=== PATIENT | female | born 1980 | race Caucasian/White ===

== ENCOUNTER 2016-04-05 09:00 | Inpatient (IN) | payer MEDICAID ==
[~2016-04-05] VITALS: Ht 157.5 cm; Wt 89.5 kg
[2016-04-05 09:56] VITALS: Ht 157.5 cm; Wt 89.5 kg
[2016-04-05 09:57] VITALS: BP 121/74; PULSE 88; RESP 18
[2016-04-05] MEDS ORDERED: CARBOPROST 250 MCG INJ IM PRN (10:00)
[2016-04-05] MEDS ORDERED: LIDOCAINE 1% (MPF) 30 ML INJ INJ PRN (10:00)
[2016-04-05] MEDS ORDERED: BUTORPHANOL 2 MG INJ IV PRN (10:00)
[2016-04-05] MEDS ORDERED: OXYTOCIN 30 UNITS/LR 500 ML IV PRN (10:00)
[2016-04-05] MEDS ORDERED: LACTATED RINGER'S 1,000 ML IV PRN (10:00)
[2016-04-05] MEDS ORDERED: IBUPROFEN 600 MG TAB PO PRN (10:00)
[2016-04-05] MEDS ORDERED: MISOPROSTOL 200 MCG TAB PR PRN (10:00)
[2016-04-05] MEDS ORDERED: METHYLERGONOVINE 0.2 MG INJ IM PRN (10:00)
[2016-04-05] MEDS ORDERED: OXYTOCIN 30 UNITS/LR 500 ML IV SCH ×2 (10:00)
[2016-04-05] MEDS: LACTATED RINGER'S 1,000 ML IV SCH ×3 (10:56→23:37)
[2016-04-05 11:24] LABS: BASOPHILS % 0.1 % (0.0-2.0); EOSINOPHILS # 0.1 10^3/ul (0.0-0.5); EOSINOPHILS % 1.1 % (0.0-7.0); HEMATOCRIT 33.9 % (37.0-47.0); HEMOGLOBIN 11.6 g/dl (12.0-16.0); LYMPHOCYTES # 1.2 10^3/ul (0.8-2.9); LYMPHOCYTES % 17.3 % (15.0-51.0); MEAN CORPUSCULAR HEMOGLOBIN 30.5 pg (29.0-33.0); MEAN CORPUSCULAR HGB CONC 34.3 g/dl (32.0-37.0); MEAN PLATELET VOLUME 11.1 fl (7.4-10.4); MONOCYTE # 0.4 10^3/ul (0.3-0.9); NEUTROPHIL # 5.3 10^3/ul (1.6-7.5); NEUTROPHILS % 75.5 % (39.0-77.0); PLATELET COUNT 162 10^3/UL (140-440); RED BLOOD COUNT 3.81 10^6/ul (4.20-5.40); RED CELL DISTRIBUTION WIDTH 14.5 % (11.5-14.5)
[2016-04-05 11:39] LABS: CONDITION 1; LH ANALYZER COMMENTS 1
[2016-04-05 11:40] LABS: INR 0.91; PROTIME 12.3 Sec (12.2-14.2)
[2016-04-05 11:41] LABS: PARTIAL THROMBOPLASTIN TIME 25.6 Sec (25.0-35.0)
[2016-04-05] MEDS ORDERED: DINOPROSTONE 10 MG VAG SUPP VAG ONE (12:30)
--- NOTE | 2016-04-05 18:44 | HP ---
Date/Time of Note Date/Time of Note DATE: 04/05/16 TIME: 18:39 OB - History Hx of Present Free Text/Dictation admitted for induction of the labor at term Last Menstrual Period: Jul 04, 2015 Estimated Due Date: Apr 04, 2016 : 3 Para: 1 Spontaneous : 1 Care: Good Care Ultrasounds: Normal mid trimester US Obstetrical Complications: None Medical Complications: None Past Family/Social History * Past Medical, Surgical, Family and Obstetric Histories reviewed from chart. Blood Type: B- Rubella: immune RPR/VDRL: Negative GBS Status: Negative HBsAG: Negative OB Admission Exam Vital Signs Vital Signs Vital Signs Date Time Temp Pulse Resp B/P Pulse Ox O2 Delivery O2 Flow Rate FiO2 04/05/16 09:57 98.4 88 18 121/74 Room Air Physical Exam HEENT: WNL Heart: Rhythm Normal Lungs: Clear, Equal Abdomen: WNL Extremities: Normal Reflexes: Normal Cervical Dilatation: Fingertip Effacement: 0% Station: -3 Membranes: Intact Heart Rate: 120's Accelerations: Accelerations Present Decelerations: No Decelerations Varibility: Moderate Contractions on Admission: None Last 72 hours Lab Results CBC & BMP 04/05/16 11:00 OB Assessment/Plan Other Assessment: term gestation for induction of the labor Induction Method: per Misoprostol Protocol MEGHANA HOOPER MD Apr 05, 2016 18:44
[2016-04-05] MEDS ORDERED: FENTAnyl 2MCG/ML-ROPIV 0.2% 100 ML ONE (23:55)
[2016-04-06] MEDS ORDERED: DIPHENHYDRAMINE 50 MG INJ IV PRN
[2016-04-06] MEDS ORDERED: FENTAnyl 2MCG/ML-ROPIV 0.2% 100 ML BAG EPI SCH
[2016-04-06] MEDS ORDERED: NALOXONE (0.4 MG/ML) INJ IV PRN
[2016-04-06] MEDS ORDERED: ONDANSETRON 4 MG INJ IV PRN
[2016-04-06] MEDS: LACTATED RINGER'S 1,000 ML IV SCH ×2 (01:59→07:59)
[2016-04-06] MEDS ORDERED: OXYTOCIN 30 UNITS/LR 500 ML IV SCH (05:30)
[2016-04-06] MEDS ORDERED: PRENAT PO (07:31)
[2016-04-06] MEDS ORDERED: MINERAL OIL LIGHT 10 ML VIAL TOP ONE (11:00)
--- NOTE | 2016-04-06 14:59 | LDN ---
Date/Time of Note Date/Time of Note DATE: 04/06/16 TIME: 14:57 Delivery Summary of a viable over intact perineum Placenta Delivered: Spontaneously, Intact & Complete Meconium: none Perineum intact?: No Perineal laceration: 2 Perineal laceration repair: 2nd dergree perineal lacerations were reppaired in layers with 2 0 Vicrl and 2 o Chromic Anesthesia type: Epidural Estimated blood loss: 300 Sponge & Needle done & correct: Yes All needle counts correct: Yes Any foreign bodies felt in the: No Problems: Delivery Information Sex Infant Sex: female Apgars 1 Minute: 9 5 Minute: 9 Suctioning Nose & mouth suctioned at grisel: Yes Delee suction performed: No Umbilical Cord Umbilical cord with: 3 Vessels Cord presentations: no nuchal cord Cord Blood was obtained: Yes Mother & Baby Disposition Disposition Mom & Baby to Maternity; Good: Yes (mother and baby were recovered in good condition ) Mom transferred to: Other (maternity) Baby to NICU: No MEGHANA HOOPER MD Apr 06, 2016 14:59
[2016-04-06 16:15] VITALS: BP 117/68; PULSE 72; RESP 18
[2016-04-06 17:28] VITALS: BP 114/59; PULSE 72; RESP 18
[2016-04-06] MEDS ORDERED: MISOPROSTOL 200 MCG TAB PR PRN (17:30)
[2016-04-06] MEDS ORDERED: DIBUCAINE 1% 30 GM OINT PR PRN (17:30)
[2016-04-06] MEDS ORDERED: ACETAMINOPHEN/CODEINE #3 TAB PO PRN ×2 (17:30)
[2016-04-06] MEDS ORDERED: LANOLIN 7 GM TUBE TOP PRN (17:30)
[2016-04-06] MEDS ORDERED: METHYLERGONOVINE 0.2 MG INJ IM PRN (17:30)
[2016-04-06] MEDS ORDERED: ZOLPIDEM 5 MG TAB PO PRN (17:30)
[2016-04-06] MEDS ORDERED: OXYTOCIN 30 UNITS/LR 500 ML IV PRN (17:30)
[2016-04-06] MEDS ORDERED: CARBOPROST 250 MCG INJ IM PRN (17:30)
[2016-04-06] MEDS: LACTATED RINGER'S 1,000 ML IV* SCH (17:38)
[2016-04-06] MEDS: BENZOCAINE 20% 56 ML SPRAY TOP PRN (17:38)
[2016-04-06] MEDS: IBUPROFEN 600 MG TAB PO SCH (17:39)
[2016-04-06] MEDS: WITCH HAZEL/GLYCERIN PAD PR PRN (17:39)
[2016-04-06 20:00] VITALS: BP 99/54; PULSE 67; RESP 18
[2016-04-06] MEDS: SENNA/DOCUSATE NA (8.6MG/50MG) TAB PO SCH (21:40)
[2016-04-06] MEDS: NITROFURANTOIN (SR) 100 MG CAP PO SCH (21:40)
[2016-04-06] MEDS: MAGNESIUM HYDROXIDE 30ML CUP PO SCH (21:40)
[2016-04-07] MEDS: IBUPROFEN 600 MG TAB PO SCH ×5 (00:13→23:51)
[2016-04-07 04:00] VITALS: BP 122/82; PULSE 77; RESP 18
[2016-04-07] MEDS: LACTATED RINGER'S 1,000 ML IV* SCH ×3 (07:00→17:10)
[2016-04-07 08:00] VITALS: BP 105/61; RESP 18
[2016-04-07 08:26] LABS: BASOPHILS % 0.3 % (0.0-2.0); EOSINOPHILS # 0.1 10^3/ul (0.0-0.5); EOSINOPHILS % 1.6 % (0.0-7.0); HEMATOCRIT 28.2 % (37.0-47.0); LYMPHOCYTES # 1.7 10^3/ul (0.8-2.9); LYMPHOCYTES % 17.5 % (15.0-51.0); MEAN CORPUSCULAR HEMOGLOBIN 31.2 pg (29.0-33.0); MEAN CORPUSCULAR HGB CONC 35.5 g/dl (32.0-37.0); MEAN PLATELET VOLUME 11.7 fl (7.4-10.4); MONOCYTE # 0.6 10^3/ul (0.3-0.9); MONOCYTES % 6.7 % (0.0-11.0); NEUTROPHILS % 73.9 % (39.0-77.0); PLATELET COUNT 136 10^3/UL (140-440); RED BLOOD COUNT 3.21 10^6/ul (4.20-5.40); RED CELL DISTRIBUTION WIDTH 14.9 % (11.5-14.5); UNCORRECTED WBC 9.5 10^3/ul (4.8-10.8); WHITE BLOOD COUNT 9.5 10^3/ul (4.8-10.8)
[2016-04-07] MEDS: MAGNESIUM HYDROXIDE 30ML CUP PO SCH ×2 (08:56→20:48)
[2016-04-07] MEDS: NITROFURANTOIN (SR) 100 MG CAP PO SCH ×2 (08:56→20:48)
[2016-04-07] MEDS: SENNA/DOCUSATE NA (8.6MG/50MG) TAB PO SCH ×2 (08:56→20:48)
[2016-04-07 08:59] LABS: CONDITION 1; LH ANALYZER COMMENTS 1
[2016-04-07 10:20] VITALS: BP 105/61; PULSE 79
[2016-04-07 16:00] VITALS: BP 112/63; PULSE 86; RESP 18
--- NOTE | 2016-04-07 17:16 | DS ---
Date/Time of Note Date/Time of Note home next day DATE: 04/07/16 TIME: 17:15 Obstetrical Discharge Record Final Diagnosis Final Diagnosis: Term delivered Other Final Diagnosis S/P vaginal delivery Vaginal Delivery Obstetrical Delivery: Spontaneous, Laceration, Repaired Complications Augmentation: Yes Induction: Yes Condition on Discharge Physical Assessment Last Vitals: see nurses notes Voiding: Yes Bowel Movement: Yes Breast: Soft, non-tender, Filling Fundus: Firm Abdomen and Incision: soft bs + Episiotomy: NA perineum healing Calf Tenderness: No Patient Condition: Good MEGHANA HOOPER MD Apr 07, 2016 17:16
--- NOTE | 2016-04-07 17:17 | PD.PPDC ---
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
[2016-04-07] MEDS ORDERED: IBUP-1542 PO (17:18)
[2016-04-07 19:32] VITALS: BP 113/60; PULSE 79; RESP 19
[2016-04-08] MEDS: LACTATED RINGER'S 1,000 ML IV* SCH ×2 (01:10→08:52)
[2016-04-08 04:00] VITALS: BP 122/85; PULSE 86; RESP 18
[2016-04-08] MEDS: IBUPROFEN 600 MG TAB PO SCH ×2 (05:53→12:17)
[2016-04-08 08:20] VITALS: BP 120/72; PULSE 77; RESP 18
[2016-04-08] MEDS: MAGNESIUM HYDROXIDE 30ML CUP PO SCH (08:49)
[2016-04-08] MEDS: BENZOCAINE 20% 56 ML SPRAY TOP PRN (08:49)
[2016-04-08] MEDS: NITROFURANTOIN (SR) 100 MG CAP PO SCH (08:49)
[2016-04-08] MEDS: SENNA/DOCUSATE NA (8.6MG/50MG) TAB PO SCH (08:49)
[2016-04-08] MEDS: WITCH HAZEL/GLYCERIN PAD PR PRN (08:49)
[2016-04-08] MEDS ORDERED: DIPHTH/TET/ACEL PERTUSS (ADULT) 0.5 ML VIAL IM* ONE (09:00)
[2016-04-08] MEDS ORDERED: MEASLES,MUMPS,RUBELLA VACCINE INJ SC* ONE (09:00)
[2016-04-08] MEDS ORDERED: VARICELLA VACCINE LIVE/PF 1,350 UNIT/0.5 ML ML SC* ONE (09:00)
== END 2016-04-08 16:28 | disposition home or self-care (01) | DRG 775 ==
LOC: L-D 09:31 → PP1 04-06 16:29
PROVIDERS: ADMIT Obstetrics & Gynecology; ATTEND Obstetrics & Gynecology
PROC: 10E0XZZ Delivery of Products of Conception, External Approach (ICD-10-PCS; principal; 2016-04-06)
PROC: 0KQM0ZZ Repair Perineum Muscle, Open Approach (ICD-10-PCS; 2016-04-06)
DX: O70.1 Second degree perineal laceration during delivery (principal); Z37.0 Single live birth; O71.5 Other obstetric injury to pelvic organs; Z3A.40 40 weeks gestation of pregnancy
CPT/HCPCS: 62319; 85025; 85610; 85730; 86592; 86900; 86901; 90715; 90716; J1200; J2590; J3010; J7120

== ENCOUNTER 2016-04-11 04:01 | Emergency (ER) | payer MEDICAID ==
[~2016-04-11] VITALS: Ht 165.1 cm; Wt 86.5 kg
[~2016-04-11 04:01] MED LIST: IBUP-1542 PO; PRENAT PO
[2016-04-11 04:03] VITALS: Ht 165.1 cm; Wt 86.5 kg
[2016-04-11] MEDS ORDERED: GUAI120S26 PO (05:21)
[2016-04-11] MEDS ORDERED: ACET500C5 PO (05:21)
[2016-04-11] MEDS ORDERED: IBUP-1542 PO (05:21)
[2016-04-11] MEDS ORDERED: CETI10CA PO (05:21)
[2016-04-11] MEDS ORDERED: OSLT75C PO (05:21)
[2016-04-11] MEDS ORDERED: ACETAMINOPHEN 325 MG TAB PO ONE (05:30)
--- NOTE | 2016-04-11 05:33 | ERD ---
ER Documentation Chief Complaint Date/Time DATE: 04/11/16 TIME: 05:31 Chief Complaint fever and flu like symptoms for 2 days HPI 40-year-old female presents to emergency department for complaints of cough runny nose nasal congestion bodyaches and fever for 2 days. Patient has been having dry cough, does not cough up any phlegm or blood. Patient does not have any shortness breath or wheezing. Patient has been having runny nose, nasal congestion with clear nasal discharge. Patient does not have any sore throat or ear pain. Patient took some ibuprofen for symptoms with mild relief. ROS All systems reviewed and are negative except as per history of present illness. Medications Home Meds Active Scripts Oseltamivir Phosphate* (Tamiflu*) 75 Mg Capsule, 75 MG PO BID for 5 Days, CAP Prov:MÓNICA BARRERA NP 04/11/16 Acetaminophen* (Tylophen*) 500 Mg Capsule, 1 CAP PO Q6H Y for PAIN AND OR ELEVATED TEMP, #20 CAP Prov:MÓNICA BARRERA NP 04/11/16 Ibuprofen* (Motrin*) 600 Mg Tab, 600 MG PO Q6H Y for PAIN AND OR ELEVATED TEMP, #30 TAB Prov:MÓNICA BARRERA NP 04/11/16 Cetirizine Hcl* (Zyrtec*) 10 Mg Capsule, 10 MG PO DAILY, #30 TAB.CHEW Prov:MÓNICA BARRERA NP 04/11/16 Qeavswptsyo-A-Uuqgtjvggw Hb* (Guaifenesin* DM Syrup) 120 Ml Syrup, 10 ML PO Q4H Y for COUGH, #120 ML Prov:MÓNICA BARRERA NP 04/11/16 Ibuprofen* (Ibuprofen*) 600 Mg Tablet, 600 MG PO Q6, #20 TAB 0 Refills Prov:MEGHANA HOOPER MD 04/07/16 Reported Medications Multivit/Min/Fol Ac/Iron/Pren* ( S*) 1 Tab Tab, 1 TAB PO DAILY, TAB 04/06/16 Allergies Allergies: Coded Allergies: Penicillins (Verified Allergy, Unknown, 05/19/09) PMhx/Soc Medical and Surgical Hx: pt denies Medical Hx, pt denies Surgical Hx Hx Alcohol Use: No Hx Substance Use: No Hx Tobacco Use: No Smoking Status: Never smoker FmHx Family History: diabetes, other (HTN) Physical Exam Vitals Vital Signs Date Time Temp Pulse Resp B/P Pulse Ox O2 Delivery O2 Flow Rate FiO2 04/11/16 04:03 100.8 108 24 135/72 98 Physical Exam GENERAL: The patient is well developed and appropriate for usual state of health, in no apparent distress. HEENT: Atraumatic. Ears: Normal tympanic membrane, no erythema or bulging. No ear canal swelling. No ear discharge. Nose: Erythematous nasal turbinates with clear nasal discharge. Throat: oropharynx erythematous with postnasal drip. No tonsillar swelling or tonsillar exudates. No lymphadenopathy. CHEST: Clear to auscultation bilaterally. There are no rales, wheezes or rhonchi. HEART: Regular rate and rhythm. No murmurs, clicks, rubs or gallops. No S3 or S4. ABDOMEN: Soft, nontender and nondistended. Good bowel sounds. No rebound or guarding. No gross peritonitis. No gross organomegaly or masses. No Tyler sign or McBurney point tenderness. BACK: No midline or flank tenderness. EXTREMITIES: Equal pulses bilaterally. There is no peripheral clubbing, cyanosis or edema. No focal swelling or erythema. Full range of motion. Grossly neurovascularly intact. NEURO: Alert and oriented. Cranial nerves 2-12 intact. Motor strength in all 4 extremities with 5/5 strength. Sensation grossly intact. Normal speech and gait. SKIN: There is no apparent rash or petechia. The skin is warm and dry. HEMATOLOGIC AND LYMPHATIC: There is no evidence of excessive bruising or lymphedema. No gross cervical, axillary, or inguinal lymphadenopathy. Results 24 hrs Current Medications Medications (Trade) Dose Ordered Sig/Bud Route PRN Reason Start Time Stop Time Status Last Admin Dose Admin Acetaminophen (Tylenol Tab) 650 mg ONCE ONCE PO 04/11/16 05:30 04/11/16 05:31 DC 04/11/16 05:20 Patient was given medicines for fever control here in the emergency department. After treatment, patient temperature improved and lower. Patient appears well and is hemodynamically stable. Procedures/MDM Medical Decision Making: Patient symptoms are most likely consistent with upper respiratory tract infection, which viral in origin, high suspicion for influenza. There is low suspicion for Pneumonia at this time since patients lungs sounds are clear, patient O2 saturation is normal and patient doesnt show any respiratory distress. Radiology exam is not indicated at this time. There is low suspicion for other cardiopulmonary emergencies at this time such as CHF , Pulmonary Embolism, Pneumothorax, Aortic Aneurysm or any other cardiopulmonary emergencies at this time. There is low suspicion for sepsis. Patient appears well and is hemodynamically stable. Fever is controlled with medicines. Disposition: Home. Condition: Stable Prescriptions: Ibuprofen, Tylenol, guaifenesin DM, Zyrtec, Tamiflu Instructions: Patient is advised to take medications as prescribed. Patient is advised to rest. Patient advised to increase fluid intake, do humidifier at home and if possible, do salt water gargles. Patient is advised that if symptoms are worse, shortness of breath, uncontrolled fever, stridor, vomiting, worst signs and symptoms to return to emergency department immediately. Otherwise, patient is advised to follow up with primary doctor in 5-7 days. Departure Diagnosis: Primary Impression: URI (upper respiratory infection) URI type: unspecified viral URI Qualified Code: J06.9 - Viral upper respiratory tract infection Condition: Stable Patient Instructions: Influenza (Adult), Uri, Viral, No Abx (Adult) MÓNICA BARRERA NP Apr 11, 2016 05:33
== END 2016-04-11 05:43 | disposition home or self-care (01) ==
LOC: FTE 04:01
DX: J06.9 Acute upper respiratory infection, unspecified (principal)
CPT/HCPCS: Z7502; Z7610; 99283

== ENCOUNTER 2018-07-22 13:47 | Inpatient (IN) | payer MEDICAID ==
[~2018-07-22] VITALS: Ht 162.6 cm; Wt 87.1 kg
[~2018-07-22 13:47] MED LIST changes: +ACET500C5 PO; +CETI10CA PO; +GUAI120S25 PO; +OSEL75CA23 PO
[2018-07-22 14:38] VITALS: Ht 162.6 cm; Wt 87.1 kg
[2018-07-22] MEDS ORDERED: IRON1TAB78 PO (14:43)
[2018-07-22] MEDS ORDERED: CALC-143 PO (14:44)
[2018-07-22 14:59] VITALS: BP 117/65; PULSE 80
--- NOTE | 2018-07-22 15:10 | PN ---
Date/Time of Note Date/Time of Note DATE: 07/22/18 TIME: 15:08 Assessment/Plan VTE Prophylaxis Pharmacological prophylaxis: NA/contraindicated Pharm contraindication: low risk/ambulating Assessment/Plan Results 24hrs S/P vaginal delivery PPD#1 erica continue to observe Subjective 24 Hr Interval Summary Free Text/Dictation Has no major complaints Constitutional: no complaints, improved Eyes: no complaints ENT: no complaints Respiratory: no complaints Cardiovascular: no complaints Gastrointestinal: no complaints Genitourinary: no complaints Musculoskeletal: no complaints Skin: no complaints Neurologic: no complaints Endocrine: no complaints Lymphatic: no complaints Psychological: no complaints, nl mood/affect Immunologic: no complaints Exam/Review of Systems Exam Vitals Vital Signs Date Temp Pulse Resp B/P (MAP) Pulse Ox O2 O2 Flow FiO2 Time Delivery Rate 07/22/18 98.5 80 117/65 Room Air 14:59 (82) Exam fundus is firm and perineum is clean Constitutional: alert, oriented, well developed Psych: no complaints, nl mood/affect Head: normocephalic, atraumatic Eyes: nl conjunctiva, EOMI, nl lids, nl sclera, PERRL ENMT: nl external ears & nose, nl lips & teeth, nl nasal mucosa & septum Neck: supple, non-tender Respiratory: clear to auscultation, normal air movement Cardiovascular: regular rate and rhythm, nl pulses Gastrointestinal: soft, nl liver, spleen, non-tender Musculoskeletal: nl extremities to inspection, nl gait and stance Extremities: normal pulses 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
[2018-07-22] MEDS ORDERED: LACTATED RINGER'S 1,000 ML IV PRN (16:38)
[2018-07-22] MEDS ORDERED: OXYTOCIN 30 UNITS/LR 500 ML IV PRN (17:00)
[2018-07-22] MEDS ORDERED: OXYCODONE/ASPIRIN (4.88/325) TAB PO PRN (17:00)
[2018-07-22] MEDS ORDERED: BUTORPHANOL 2 MG INJ IV PRN (17:00)
[2018-07-22] MEDS ORDERED: MISOPROSTOL 200 MCG TAB PR PRN (17:00)
[2018-07-22] MEDS ORDERED: MINERAL OIL LIGHT 10 ML VIAL TOP PRN (17:00)
[2018-07-22] MEDS ORDERED: IBUPROFEN 600 MG TAB PO PRN (17:00)
[2018-07-22] MEDS ORDERED: METHYLERGONOVINE 0.2 MG INJ IM PRN (17:00)
[2018-07-22] MEDS ORDERED: LIDOCAINE 1% (MPF) 30 ML INJ INJ PRN (17:00)
[2018-07-22] MEDS ORDERED: OXYTOCIN 30 UNITS/LR 500 ML IV SCH ×2 (17:00)
[2018-07-22] MEDS ORDERED: CARBOPROST 250 MCG INJ IM PRN (17:00)
[2018-07-22] MEDS: LACTATED RINGER'S 1,000 ML IV SCH (17:30)
[2018-07-23] MEDS ORDERED: MINERAL OIL LIGHT 10 ML VIAL TOP ONE
[2018-07-23] MEDS: LACTATED RINGER'S 1,000 ML IV SCH ×3 (00:09→16:07)
[2018-07-23] MEDS ORDERED: OXYTOCIN 30 UNITS/LR 500 ML IV SCH (08:00)
[2018-07-23] MEDS: MISOPROSTOL 50 MCG CAPSULE PO SCH ×2 (13:55→17:25)
--- NOTE | 2018-07-23 14:09 | HP ---
Date/Time of Note Date/Time of Note DATE: 07/23/18 TIME: 14:06 OB - History Hx of Present Free Text/Dictation 38-year-old female 3 para 2 at 39 weeks gestation admitted because of observation of possible by ultrasound nuchal cord detection Last Menstrual Period: Oct 22, 2017 Estimated Due Date: July 29, 2018 : 3 Para: 2 Care: Good Care Ultrasounds: Normal mid trimester US Obstetrical Complications: None Medical Complications: None Past Family/Social History * Past Medical, Surgical, Family and Obstetric Histories reviewed from chart. Blood Type: B- Rubella: immune RPR/VDRL: Negative GBS Status: Negative OB Admission Exam Vital Signs Vital Signs Vital Signs Date Temp Pulse Resp B/P (MAP) Pulse Ox O2 O2 Flow FiO2 Time Delivery Rate 07/22/18 98.5 80 117/65 Room Air 14:59 (82) Physical Exam HEENT: WNL Heart: Rhythm Normal Lungs: Clear, Equal Abdomen: WNL Extremities: Normal Reflexes: Normal Cervical Dilatation: None Effacement: 50% Membranes: Intact Heart Rate: 140's Accelerations: Accelerations Present Decelerations: No Decelerations Varibility: Marked Contractions on Admission: None Last 72 hours Lab Results CBC & BMP 07/22/18 17:05 OB Assessment/Plan Other Assessment: ` Nuchal cord at 39+ weeks Other plan: Start induction using Cytotec Because of uterine use previous vaginal exam patient was started on Pitocin which was DC'MEGHANA Jacobo MD July 23, 2018 14:09
[2018-07-24] MEDS: MISOPROSTOL 50 MCG CAPSULE PO SCH ×3 (00:01→10:13)
[2018-07-24] MEDS: LACTATED RINGER'S 1,000 ML IV SCH ×2 (09:19)
--- NOTE | 2018-07-24 15:38 | DS ---
Date/Time of Note Date/Time of Note She had no cervical change for period of 2 days heart tones are reactive We will follow as outpatient DATE: 07/24/18 TIME: 15:29 Obstetrical Discharge Record Final Diagnosis Final Diagnosis: Term not delivered Complications Augmentation: Yes Induction: Yes Condition on Discharge Physical Assessment Last Vitals: See nurse's notes Voiding: Yes Bowel Movement: Yes Breast: Soft, non-tender, Filling Fundus: Other ( heart tones are reactive) Abdomen and Incision: Abdomen is soft and gravid fundal height is 36 Calf Tenderness: No Patient Condition: Good MEGHANA HOOPER MD July 24, 2018 15:38
--- NOTE | 2018-07-24 15:41 | PD.PPDC ---
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
== END 2018-07-24 17:19 | disposition home or self-care (01) | DRG 833 ==
LOC: OBT 13:47 → L-D 13:49 → OBT 16:10 → L-D 16:10
PROVIDERS: ADMIT Obstetrics & Gynecology; ATTEND Obstetrics & Gynecology
DX: O47.1 False labor at or after 37 completed weeks of gestation (principal); Z3A.39 39 weeks gestation of pregnancy
CPT/HCPCS: 76815; 76818; 85025; 85610; 85730; 86592; 86850; 86900; 86901; 87340; G0463; J2590; J7120

== ENCOUNTER 2018-07-27 15:13 | Outpatient (CLI) | payer MEDICAID ==
[~2018-07-27 15:13] MED LIST changes: -ACET500C5 PO; +CALC-143 PO; -CETI10CA PO; -GUAI120S25 PO; -IBUP-1542 PO; +IRON1TAB78 PO; -OSEL75CA23 PO
--- NOTE | 2018-07-27 18:10 | PN ---
Triage Information Date/Time 07/27/2018 Reason for visit: Patient here for antepartum testing because of finding of a nuchal cord during ultrasound and previous admissions Weeks of Gestation 39 weeks and 5 days /Para 4 para 2 Diabetes: none Hypertention: none Objective Heart Rate: 140's Heart Rate Comments Reactive Contractions: None Results/Medications Imaging Results Normal biophysical profile. Disposition: Discharge Assessment/Plan July patient home with follow-up in 2 days for antepartum testing MEGHANA HOOPER MD July 27, 2018 18:10
== END 2018-07-27 18:18 | disposition home or self-care (01) ==
LOC: OBT 15:13 → L-D 15:14 → OBT 18:18
PROVIDERS: ATTEND Obstetrics & Gynecology
DX: O09.523 Supervision of elderly multigravida, third trimester (principal); Z3A.39 39 weeks gestation of pregnancy
CPT/HCPCS: 76818; Z7500; G0463

== ENCOUNTER 2018-07-30 09:30 | Inpatient (IN) | payer MEDICAID ==
[~2018-07-30] VITALS: Ht 162.6 cm; Wt 87.1 kg
[2018-07-30] MEDS ORDERED: LACTATED RINGER'S 1,000 ML IV PRN (10:11)
[2018-07-30 10:30] VITALS: BP 117/71; PULSE 80; RESP 18
[2018-07-30] MEDS ORDERED: LIDOCAINE 1% (MPF) 30 ML INJ INJ PRN (10:30)
[2018-07-30] MEDS ORDERED: METHYLERGONOVINE 0.2 MG INJ IM PRN (10:30)
[2018-07-30] MEDS ORDERED: OXYTOCIN 30 UNITS/LR 500 ML IV PRN (10:30)
[2018-07-30] MEDS ORDERED: MINERAL OIL LIGHT 10 ML VIAL TOP PRN (10:30)
[2018-07-30] MEDS ORDERED: MISOPROSTOL 200 MCG TAB PR PRN (10:30)
[2018-07-30] MEDS ORDERED: CARBOPROST 250 MCG INJ IM PRN (10:30)
[2018-07-30] MEDS ORDERED: BUTORPHANOL 2 MG INJ IV PRN (10:30)
[2018-07-30] MEDS ORDERED: OXYTOCIN 30 UNITS/LR 500 ML IV SCH ×2 (10:30)
[2018-07-30] MEDS ORDERED: IBUPROFEN 600 MG TAB PO PRN (10:30)
[2018-07-30 10:59] VITALS: Ht 162.6 cm; Wt 87.1 kg
[2018-07-30] MEDS: LACTATED RINGER'S 1,000 ML IV SCH ×2 (11:04→18:10)
[2018-07-30] MEDS: MISOPROSTOL 50 MCG CAPSULE PO PRN ×2 (12:26→16:19)
--- NOTE | 2018-07-30 18:58 | HP ---
Date/Time of Note Date/Time of Note DATE: 07/30/18 TIME: 18:55 OB - History Hx of Present Free Text/Dictation 37-year-old female 3 para 2 at 40 weeks gestation admitted for elective induction of labor Patient had episode of an induction of labor at the prior week without success Last Menstrual Period: Oct 22, 2017 Estimated Due Date: July 29, 2018 : 3 Para: 2 Care: Good Care Ultrasounds: Normal mid trimester US Obstetrical Complications: None Medical Complications: None Past Family/Social History * Past Medical, Surgical, Family and Obstetric Histories reviewed from chart. Blood Type: B+ Rubella: immune RPR/VDRL: Negative GBS Status: Negative HBsAG: Negative OB Admission Exam Vital Signs Vital Signs Vital Signs Date Temp Pulse Resp B/P (MAP) Pulse Ox O2 O2 Flow FiO2 Time Delivery Rate 07/30/18 98.3 80 18 117/71 98 10:30 (86) Physical Exam HEENT: WNL Heart: Rhythm Normal Lungs: Clear, Equal Abdomen: WNL Extremities: Normal Reflexes: Normal Cervical Dilatation: 2cm Effacement: 50% Station: -3 Membranes: Intact Heart Rate: 140's Accelerations: Accelerations Present Decelerations: No Decelerations Varibility: Marked Contractions on Admission: None Last 72 hours Lab Results CBC & BMP 07/30/18 10:31 OB Assessment/Plan Reason for admission: induction of labor Other Assessment: Term gestation Other plan: Proceed with Cytotec induction of labor MEGHANA HOOPER MD July 30, 2018 18:58
[2018-07-30] MEDS ORDERED: CALCIUM CARBONATE 500 MG CHEW TAB PO ONE (20:30)
[2018-07-31] MEDS: LACTATED RINGER'S 1,000 ML IV SCH ×3 (02:14→19:49)
[2018-07-31] MEDS ORDERED: OXYTOCIN 30 UNITS/LR 500 ML IV SCH (10:00)
--- NOTE | 2018-07-31 12:40 | PREAC ---
Date/Time of Note Date/Time of Note DATE: 07/31/18 TIME: 12:38 Anesthesia Eval and Record Evaluation Time Pre-Procedure Interview DATE: 07/31/18 TIME: 12:38 Age 38 Sex female NPO: 8 hrs Preoperative diagnosis IUP Planned procedure L&D Epidural Past Medical History Past Medical History: None Surgery & Anesthesia Issues No known issue Meds Anticoagulation: No Beta Stoney within 24 hr: No Reason Beta Stoney not given: Pt. not on B-Stoney Reported Medications Calcium Citrate/Vitamin D (Citracal-Vitamin D 200 MG-250) 1 Each Tablet, 1 EACH PO DAILY, TAB 07/22/18 Iron,Carbonyl/Vit C/Vit B12/Fa (IRON 100 PLUS TABLET) 1 Each Tablet, 1 EACH PO DAILY, TAB 07/22/18 Multivit/Min/Fol Ac/Iron/Pren* ( S*) 1 Tab Tab, 1 TAB PO DAILY, TAB 04/06/16 Discontinued Scripts Oseltamivir Phosphate* (Tamiflu*) 75 Mg Capsule, 75 MG PO BID for 5 Days, CAP Prov:MÓNICA BARRERA NP 04/11/16 Acetaminophen* (Tylophen*) 500 Mg Capsule, 1 CAP PO Q6H PRN for PAIN AND OR ELEVATED TEMP, #20 CAP Prov:MÓNICA BARRERA NP 04/11/16 Ibuprofen* (Motrin*) 600 Mg Tab, 600 MG PO Q6H PRN for PAIN AND OR ELEVATED TEMP, #30 TAB Prov:MÓNICA BARRERA NP 04/11/16 Cetirizine Hcl* (Zyrtec*) 10 Mg Capsule, 10 MG PO DAILY, #30 TAB.CHEW Prov:MÓNICA BARRERA NP 04/11/16 Ihgkicsohsk-E-Blhgvrmtzb Hb* (Guaifenesin* DM Syrup) 120 Ml Syrup, 10 ML PO Q4H PRN for COUGH, #120 ML Prov:MÓNICA BARRERA NP 04/11/16 Ibuprofen* (Ibuprofen*) 600 Mg Tablet, 600 MG PO Q6, #20 TAB 0 Refills Prov:MEGHANA HOOPER MD 04/07/16 Current Medications Lactated Ringer's 1,000 ml @ 125 mls/hr Q8H IV Last administered on 07/31/18at 02:14; Admin Dose 125 MLS/HR; Start 07/30/18 at 10:11 Butorphanol Tartrate (Stadol) 2 mg Q2H PRN IV .PAIN SCALE 6-10; Start 07/30/18 at 10:30 Lidocaine (Xylocaine 1% (Mpf)) 30 ml ONCE PRN INJ .EPISIOTOMY; Start 07/30/18 at 10:30 Oxytocin/Lactated Ringer's 500 ml @ 500 mls/hr ONCE POST IV ; Start 07/30/18 at 10:30 Oxytocin/Lactated Ringer's 500 ml @ 125 mls/hr POST IV ; Start 07/30/18 at 10:30 Ibuprofen (Motrin) 600 mg ONCE PRN PO .PAIN 1-5; Start 07/30/18 at 10:30 Lactated Ringer's 1,000 ml @ 2,000 mls/hr Q30M PRN IV .ANESTHESIA Last administered on 07/31/18at 12:13; Admin Dose 2,000 MLS/HR; Start 07/30/18 at 10:11 Oxytocin/Lactated Ringer's 500 ml @ 0 mls/hr ONCE PRN IV .VAGINAL BLEEDING; Start 07/30/18 at 10:30 Methylergonovine Maleate (Methergine) 0.2 mg ONCE PRN IM .VAGINAL BLEEDING; Start 07/30/18 at 10:30 Carboprost Tromethamine (Hemabate) 250 mcg ONCE PRN IM .VAGINAL BLEEDING; Start 07/30/18 at 10:30 Misoprostol (Cytotec) 1,000 mcg ONCE PRN OR .VAGINAL BLEEDING; Start 07/30/18 at 10:30 Mineral Oil (Muri-Lube) 10 ml PRN PRN TOP NOTE; Start 07/30/18 at 10:30 Oxytocin/Lactated Ringer's 500 ml @ 0 mls/hr FOR INDUCTION IV Last administered on 07/31/18at 09:59; Admin Dose 1 MLS/HR; Start 07/31/18 at 10:00 Meds reviewed: Yes Allergies Coded Allergies: Penicillins (Verified Allergy, Unknown, 05/19/09) Allergies Reviewed: Yes Labs/Studies Labs Reviewed: Reviewed by anesthesiologist Result Diagram: 07/30/18 1031 test: Positive Studies: ECG Pre-procedure Exam Last vitals Vital Signs Date Temp Pulse Resp B/P (MAP) Pulse Ox O2 O2 Flow FiO2 Time Delivery Rate 07/30/18 98.3 80 18 117/71 98 10:30 (86) Airway: Adequate mouth opening, Adequate thyromental dist Mallampati: Mallampati II Teeth: Normal Lung: Normal Heart: Normal ASA Physical Status ASA physical status: 2 Emergency: None Planned Anesthetic Neuraxial: Epidural Planned Pain Management Epidural Pre-operative Attestations Prior to commencing anesthesia and surgery, the patient was re-evaluated, there was verification of: *The patient's identity *The results of appropriate recent lab work and preoperative vital signs *The above evaluation not changing prior to induction *Anesthetic plan, risk benefits, alternative and complications discussed with patient/family; questions answered; patient/family understands, accepts and wishes to proceed. JAVIER STUBBS MD July 31, 2018 12:40
[2018-07-31] MEDS ORDERED: ONDANSETRON 4 MG INJ IV PRN (13:00)
[2018-07-31] MEDS ORDERED: DIPHENHYDRAMINE 50 MG INJ IV PRN (13:00)
[2018-07-31] MEDS ORDERED: NALOXONE (0.4 MG/ML) INJ IV PRN (13:00)
[2018-07-31] MEDS ORDERED: FENTAnyl 2MCG/ML-ROPIV 0.2% 100 ML BAG EPI SCH (13:00)
[2018-07-31] MEDS ORDERED: ACETAMINOPHEN 500 MG TAB PO STA (18:14)
[2018-07-31] MEDS ORDERED: KETOROLAC 30 MG INJ IV STA (18:14)
--- NOTE | 2018-07-31 18:14 | LDN ---
Date/Time of Note Date/Time of Note DATE: 07/31/18 TIME: 18:13 Delivery Summary Normal spontaneous vaginal delivery of a viable over intact perineum Weeks of Gestation 40 weeks Placenta Delivered: Spontaneously, Intact & Complete Meconium: none Episiotomy: No Perineal laceration: 1 Laceration repair: First-degree perineal laceration was repaired in layers using 2-0 Vicryl in deeper layers and 3-0 chromic on superficial vein Anesthesia type: Epidural Estimated blood loss: 300 Sponge & Needle done & correct: Yes All needle counts correct: Yes Any foreign bodies felt in the: No Delivery Information Sex Sex: male Apgars 1 Minute: 8 5 Minute: 9 Suctioning Nose & mouth suctioned at grisel: Yes Delee suction performed: No Umbilical Cord Umbilical cord with: 3 Vessels Cord presentations: nuchal cord Nuchal cord present X: 1 Cord Blood was obtained: Yes Mother & Baby Disposition Disposition Mom & Baby to Maternity; Good: Yes (Mother and baby were recovered in good condition) Mom transferred to: Other (Maternity) Baby to NICU: No MGEHANA HOOPER MD July 31, 2018 18:14
--- NOTE | 2018-07-31 18:29 | QN ---
Documentation Comment late entry for service rendered early this pm called for ARM for Dr Hobbs cervix post 3cm /40%/ -2 ARM done clear mod amount fluid noted DAREN LYMAN MD July 31, 2018 18:29
[2018-07-31 21:08] VITALS: BP 119/72; PULSE 70; RESP 18
[2018-07-31] MEDS ORDERED: BENZOCAINE 20% 56 ML SPRAY TOP PRN (21:30)
[2018-07-31] MEDS ORDERED: MISOPROSTOL 200 MCG TAB PR PRN (21:30)
[2018-07-31] MEDS ORDERED: METHYLERGONOVINE 0.2 MG INJ IM PRN (21:30)
[2018-07-31] MEDS ORDERED: OXYTOCIN 30 UNITS/LR 500 ML IV PRN (21:30)
[2018-07-31] MEDS ORDERED: CARBOPROST 250 MCG INJ IM PRN (21:30)
[2018-07-31] MEDS ORDERED: ZOLPIDEM 5 MG TAB PO PRN (21:30)
[2018-07-31] MEDS ORDERED: DIBUCAINE 1% 30 GM OINT TOP PRN (21:30)
[2018-07-31] MEDS ORDERED: LANOLIN HPA 1 PKT TOP PRN (21:30)
[2018-07-31] MEDS ORDERED: HYDROCODONE/APAP (5/325) TAB PO PRN ×2 (21:30)
[2018-07-31] MEDS ORDERED: WITCH HAZEL/GLYCERIN PAD PR PRN (21:30)
[2018-07-31] MEDS: LACTATED RINGER'S 1,000 ML IV* SCH (22:13)
[2018-08-01] MEDS: IBUPROFEN 600 MG TAB PO SCH ×5 (00:03→23:49)
[2018-08-01] MEDS: CEPHALEXIN 500 MG CAP PO SCH ×5 (00:03→23:49)
[2018-08-01 00:10] VITALS: BP 126/62; PULSE 85; RESP 18
[2018-08-01 04:12] VITALS: BP 110/62; PULSE 75; RESP 18
[2018-08-01] MEDS: LACTATED RINGER'S 1,000 ML IV* SCH (06:29)
--- NOTE | 2018-08-01 06:58 | PAC ---
Date/Time of Note Date/Time of Note DATE: 08/01/18 TIME: 06:57 Post-Anesthesia Notes Post-Anesthesia Note Last documented vital signs Vital Signs Date Temp Pulse Resp B/P (MAP) Pulse Ox O2 O2 Flow FiO2 Time Delivery Rate 08/01/18 98.1 75 18 110/62 High Flow 04:12 (78) 07/30/18 98 10:30 Activity: WNL Respiratory function: WNL Cardiovascular function: WNL Mental status: Baseline Pain reasonably controlled: Yes Hydration appropriate: Yes Nausea/Vomiting absent: Yes Comments BP:122/56, P:82, Spo2:100%, T:98,7 JAVIER STUBBS MD August 01, 2018 06:58
[2018-08-01 08:30] VITALS: BP 113/64; PULSE 75; RESP 20
[2018-08-01] MEDS: MAGNESIUM HYDROXIDE 30ML CUP PO SCH ×2 (09:20→22:05)
[2018-08-01] MEDS: SENNA/DOCUSATE NA (8.6MG/50MG) TAB PO SCH ×2 (09:20→22:05)
[2018-08-01 16:10] VITALS: BP 106/54; PULSE 79; RESP 22
[2018-08-01 20:25] VITALS: BP 120/71; PULSE 88; RESP 18
--- NOTE | 2018-08-01 21:16 | DS ---
Date/Time of Note Date/Time of Note home enxt day DATE: 08/01/18 TIME: 21:14 Obstetrical Discharge Record Final Diagnosis Final Diagnosis: Term delivered Other Final Diagnosis S/P vaginal delivery Vaginal Delivery Obstetrical Delivery: Spontaneous, Laceration, Repaired Complications Augmentation: Yes Induction: Yes Condition on Discharge Physical Assessment Last Vitals: see nurses notes Voiding: Yes Bowel Movement: Yes Breast: Soft, non-tender, Filling Fundus: Firm Abdomen and Incision: soft BS + Episiotomy: perineum healing well and looks clean Calf Tenderness: No Patient Condition: Good MEGHANA HOOPER MD August 01, 2018 21:16
[2018-08-02 04:00] VITALS: BP 112/74; PULSE 76; RESP 16
[2018-08-02] MEDS: CEPHALEXIN 500 MG CAP PO SCH ×2 (05:33→12:17)
[2018-08-02] MEDS: IBUPROFEN 600 MG TAB PO SCH ×2 (05:33→12:17)
[2018-08-02] MEDS: MAGNESIUM HYDROXIDE 30ML CUP PO SCH (08:24)
[2018-08-02] MEDS: SENNA/DOCUSATE NA (8.6MG/50MG) TAB PO SCH (08:24)
[2018-08-02 08:35] VITALS: BP 111/73; PULSE 77; RESP 18
[2018-08-02] MEDS ORDERED: DIPHTH/TET/ACEL PERTUSS (ADULT) 0.5 ML VIAL IM* ONE (09:00)
[2018-08-02] MEDS ORDERED: VARICELLA VACCINE LIVE/PF 1,350 UNIT/0.5 ML ML SC* ONE (09:00)
[2018-08-02] MEDS ORDERED: MEASLES,MUMPS,RUBELLA VACCINE INJ SC* ONE (09:00)
--- NOTE | 2018-08-02 11:46 | PD.PPDC ---
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 Physician Information 38-year-old female had vaginal delivery Diagnosis [id number] Final Diagnosis: Oyzub5d Status post vaginal delivery Condition Agufb6Sr Patient Condition: Netdo1z Good Diet Rhyya8Kl Diet: Rtbnb9l Resume Regular Diet Activity/Restrictions Vrdgn8Dc Activity: Qvodb8m Normal Activity May Shower Pqhem5Cv Restrictions: Pimku5q Nothing in the Vagina Qvyeb9Ki Return to Work or School: Zokdy4v Sep 21, 2018 Follow-up Follow-up with Physician: 2, 4, Week/Weeks Return to clinic for Yzvyp7Ze OB Instructions: Shkys1p Breast Tenderness Depression Comment: Pelvic rest for 6 weeks MEGHANA HOOPER MD August 02, 2018 11:46
[2018-08-02] MEDS ORDERED: IBUP-1542 PO (11:47)
--- NOTE | 2018-08-03 16:24 | DELSUM ---
Delivery Summary A-C Datetime Report Generated by CPN: 08/03/2018 16:24 DELIVERY PERSONNEL Jig Filler: Soleimani, Elke MATERNAL INFORMATION Delivery Anesthesia: Epidural Medications in Delivery: LR 500ML PITOCIN 30 UNITS Delivery QBL (ml): 300 Placenta Cultured: No Maternal Complications: Other RN Comments: low baseline fht, nuco per u/s, hs of macro babies LABOR SUMMARY EDC: 07/29/2018 00:00 No. Babies in Womb: 1 Attempted: No Labor Anesthesia: Epidural LABOR INFORMATION Reason for Induction: Other Reason for Induction- Other: 40.1 WKS Onset of Labor: 07/30/2018 10:00 Complete Dilatation: 07/31/2018 17:40 Cervical Ripening Agents: Cytotec @ Other Ripening Agents: 6 mu Oxytocin: Induction Group B Beta Strep: Negative Antibiotics # of Doses: 0 Steroids Given: None Reason Steroids Not Administered: Not Applicable MEMBRANES Membranes Rupture Method: Artificial Rupture of Membranes: 07/31/2018 12:07 Length of Rupture (hr): 5.77 Amniotic Fluid Color: Clear Amniotic Fluid Amount: Small Amniotic Fluid Odor: Normal STAGES OF LABOR Stage 1 hr: 31 Stage 1 min: 40 Stage 2 hr: 0 Stage 2 min: 13 Stage 3 hr: 0 Stage 3 min: 5 Total Time in Labor hr: 31 Total Time in Labor min: 58 VAGINAL DELIVERY Episiotomy: None Laceration Extension: First Degree Laceration Type: Perineal Laceration Repair: Yes Initial Vag Sponge Count: 10 Final Vag Sponge Count: 10 Initial Vag Sharps Count: 3 Final Vag Sharps Count: 3 Sponge Count Correct: Yes Sharps Count Correct: Yes BABY A INFORMATION Delivery Date/Time: 07/31/2018 17:53 Method of Delivery: Vaginal Born in Route : No : N/A Forceps: N/A Vacuum Extraction: N/A Shoulder Dystocia : No SHOULDER DYSTOCIA BABY A Infant Delivery Date/Time: 07/31/2018 17:53 PRESENTATION/POSITION BABY A Presentation: Cephalic Cephalic Presentation: Vertex Vertex Position: Left Occipital Posterior Breech Presentation: N/A PLACENTA INFORMATION BABY A Placenta Delivery Time : 07/31/2018 17:58 Placenta Method of Delivery: Spontaneous Placenta Status: Delivered SCORES BABY A Heart Rate 1 min: >100 bpm Resp Effort 1 min: Good Cry Reflex Irritability 1 min: Cough/Sneeze/Pulls Away Muscle Tone 1 min: Active Motion Color 1 min: Blue/Pale Resuscitation Effort 1 min: Tactile Stimulation SCORE 1 MIN: 8 Heart Rate 5 min: >100 bpm Resp Effort 5 min: Good Cry Reflex Irritability 5 min: Cough/Sneeze/Pulls Away Muscle Tone 5 min: Active Motion Color 5 min: Body [place], Extremit Blue Resuscitation Effort 5 min: Tactile Stimulation SCORE 5 MIN: 9 INFANT INFORMATION BABY A Gestational Age at Delivery: 40.2 Gestational Status: Full Term- 39- 40.6 Weeks Outcome : Liveborn Condition : Stable Infant Sex: Male IDENTIFICATION/MEDS BABY A ID Band Number: [id number] ID Band Location: Right Leg; Left Arm Sensor Applied: Yes Sensor Number: [id number] Sensor Location : Cord Clamp Vitamin K Given : Not Given Erythromycin Given: Not Given WEIGHT/LENGTH BABY A Infant Birthweight (gm): 3540 Weight (lb): 7 Infant Weight (oz): 13 Infant Length (in): 19.50 Length (cm): 49.53 CORD INFORMATION BABY A No. Cord Vessels: 3 Nuchal Cord : Around Neck x2, Loose Cord Blood Taken: Yes Suction: Mouth; Nose ASSESSMENT BABY A Complications: Extended Bradycardi; Other Complications- Other: nuco, Senior Benefits Analyst/ALS Called : Yes
== END 2018-08-02 14:10 | disposition home or self-care (01) | DRG 998 ==
LOC: L-D 10:03 → PP1 07-31 21:00
PROVIDERS: ADMIT Obstetrics & Gynecology; ATTEND Obstetrics & Gynecology
PROC: 10E0XZZ Delivery of Products of Conception, External Approach (ICD-10-PCS; principal; 2018-07-31)
PROC: 0HQ9XZZ Repair Perineum Skin, External Approach (ICD-10-PCS; 2018-07-31)
PROC: 10907ZC Drainage of Amniotic Fluid, Therapeutic from Products of Conception, Via Natural or Artificial Opening (ICD-10-PCS; 2018-07-31)
DX: O69.81X0 Labor and delivery complicated by cord around neck, without compression, not applicable or unspecified (principal); O70.0 First degree perineal laceration during delivery; Z3A.40 40 weeks gestation of pregnancy
CPT/HCPCS: 62322; 76815; 85025; 85610; 85730; 86592; 86850; 86885; 86900; 86901; 87340; 90716; J1200; J2590; J2790; J3010; J7120